=== PATIENT | female | born 1985 | race Caucasian/White ===

== ENCOUNTER → 2023-07-13 15:03 | Outpatient (CLI) | payer OTHER, SELFPAY ==
[2023-07-13 17:50] LABS: Add Manual Diff / Slide Review NO; Basophils Absolute Auto 0 /uL (0-100); Basophils Percent Auto 0.3 % (0-2); Eosinophils Absolute Auto 100 /uL (0-450); Eosinophils Percent Auto 0.6 % (2-4); Hematocrit 35.9 % (36-46); Hemoglobin 12.4 g/dL (12.0-16.0); Lymphocytes Absolute Auto 2300 /uL (1100-4500); Lymphocytes Percent Auto 24.2 % (25-40); Mean Corpuscular HGB Conc 34.6 % (30-36); Mean Corpuscular Hemoglobin 32.3 PG (26-34); Mean Corpuscular Volume 93.4 fL (80-100); Monocytes Absolute Auto 800 /uL (0-900); Monocytes Percent Auto 8.4 % (3-14); Neutrophils Absolute Auto 6300 /uL (1500-7000); Neutrophils Percent Auto 66.5 % (50-75); Platelet Count 282 X10^3/uL (150-400); Red Blood Cell Count 3.84 X10^6/uL (4.0-5.2); Red Cell Distribution Width 12.1 % (11.6-14.8); White Blood Cell Count 9.5 X10^3/uL (4.5-11.0)
[2023-07-13 18:27] LABS: HEMOLYSIS < 15 (0-50); Iron 95 ug/dL (37-170)
[2023-07-13 18:32] LABS: Hemoglobin A1C% w Est Avg Glu 5.1 % (4.0-6.0)
[2023-07-13 18:43] LABS: Percent Iron Saturation 25 % (15-50); Total Iron Binding Capacity 377 ug/dL (265-497); Transferrin 301 mg/dL (206-381)
[2023-07-13 18:48] LABS: Appearance Urine UA CLEAR; Bilirubin Urine UA NEGATIVE (NEGATIVE); Color Urine UA YELLOW; Glucose Urine UA NEGATIVE (Negative); Ketones Urine UA NEGATIVE (NEGATIVE); Leukocyte Esterase Urine UA NEGATIVE (NEGATIVE); Nitrite Urine UA NEGATIVE (Negative); Occult Blood Urine UA NEGATIVE (Negative); Protein Urine UA NEGATIVE (Negative); Specific Gravity Urine UA <=1.005 (1.000-1.035); Urobilinogen Urine UA 0.2 E.U./dL (0.2)
[2023-07-13 19:29] LABS: HIV 1 & 2 Ab/Ag 4th Gen Combo NEGATIVE (NEGATIVE); Hep C Virus Ab w/Reflex Quant NEGATIVE s/c (NEGATIVE); Hepatitis B Surface Antigen NEGATIVE s/c (NEGATIVE); Rubella Antibody IgG 30.3 IU/mL (>15)
[2023-07-15 10:51] LABS: Varicella IgG Antibody 3193 index (Immune >165)
[2023-07-16 03:23] LABS: RPR Screen Non Reactive (Non Reactive)
== END ==
PROVIDERS: PCP Student in an Organized Health Care Education/Training Program; Referring Provider Student in an Organized Health Care Education/Training Program; Visit Provider Student in an Organized Health Care Education/Training Program
DX: Z34.80 Encounter for supervision of other normal pregnancy, unspecified trimester (principal); O09.299 Supervision of pregnancy with other poor reproductive or obstetric history, unspecified trimester; Z86.32 Personal history of gestational diabetes; R79.0 Abnormal level of blood mineral
CPT/HCPCS: 36415; 80055; 81003; 83036; 83540; 83550; 86787; 86803; 86850; 86900; 86901; 87077; 87086; 87147; 87389

== ENCOUNTER → 2023-07-21 14:24 | Outpatient (CLI) | payer OTHER, SELFPAY ==
--- NOTE | 2023-07-21 14:24 | DI.US.S_ITS ---
PROCEDURE: US OB <= 14 WEEKS FETUS INDICATIONS: DATING AND VIABILITY OUTSIDE/PRIOR DATING DATA: Last menstrual period (LMP): 05/16/2023 LMP-based estimated date of delivery (SALIMA): 02/20/2024 First dating scan (date and location): 07/21/2023 Estimated date of delivery (SALIMA) from first dating scan: 02/20/2024 TECHNIQUE: Real-time scanning was performed of the fetus and maternal pelvic organs, with image documentation. COMPARISON: None. FINDINGS: Embryo: Intrauterine gestational sac is seen with yolk sac and pole. [place]-rump length is 2.6 cm, compatible with an estimated gestational age of nine weeks 3 days. Heart rate: 168 beats per minute Maternal organs: Left ovarian corpus luteum cyst is present. Ovaries are otherwise unremarkable. IMPRESSION: Single live intrauterine . size is concordant with clinical dates. We strive to produce accurate, complete, and clear reports of imaging services. To assist us in improving patient care, this report was composed using standard report templates and voice recognition software. Therefore, it may contain abnormal punctuation, insertions and/or omissions. Occasional wrong-word or sound-alike substitutions may occur. Though we review the report and make efforts to correct it, we do recommend that the report be read carefully in proper context to recognize any text inaccuracies. Approved by: Seth Jenkins M.D. on 07/21/2023 at 20:41
== END ==
PROVIDERS: PCP Student in an Organized Health Care Education/Training Program; Referring Provider Student in an Organized Health Care Education/Training Program; Visit Provider Student in an Organized Health Care Education/Training Program
DX: Z34.81 Encounter for supervision of other normal pregnancy, first trimester (principal); Z3A.01 Less than 8 weeks gestation of pregnancy
CPT/HCPCS: 76801

== ENCOUNTER → 2023-07-30 13:58 | Outpatient (CLI) | payer OTHER, SELFPAY ==
[2023-07-30 14:13] LABS: Miscellaneous to LabCorp NATERA KIT
--- NOTE | 2023-08-14 18:27 | P.CALLCOV_ITS ---
Call Coverage Note Note Date of Patient Contact: 08/14/23 Time of Patient Contact: 18:28 Narrative of Care Provided: Amanda has had a fever since Thursday - ranging from 99-101 F. Has a cough, nasal congestion, sinus pain in her face. Has a history of sinus infections and this reminds her of them. Is using neti pot/saline spray, humidifier. Has taken 250- 500 mg acetaminophen which has helped her fever a little bit but not much. New to the area; thinks she got exposed at a hockey tournament last weekend. Requesting advice. Reports allergies to doxycycline (rash). at 13 weeks Sinus infection Recommend covid testing; Amanda did this and tested negative today (08/14/23). Recommend acetaminophen 1000 mg TID x 48 hours to manage fever. Rx for Augmentin 500/125 TID x 7 days called into her pharmacy. Recommend probiotics. Call back with questions or concerns.
== END ==
PROVIDERS: PCP Student in an Organized Health Care Education/Training Program; Referring Provider Student in an Organized Health Care Education/Training Program; Visit Provider Student in an Organized Health Care Education/Training Program
DX: O09.521 Supervision of elderly multigravida, first trimester (principal); Z34.80 Encounter for supervision of other normal pregnancy, unspecified trimester
CPT/HCPCS: 36415

== ENCOUNTER → 2023-10-05 12:16 | Outpatient (CLI) | payer OTHER, SELFPAY ==
--- NOTE | 2023-10-05 12:16 | DI.US.S_ITS ---
PROCEDURE: US OB >= 14 WEEKS FETUS INDICATIONS: Anatomy Scan OUTSIDE/PRIOR DATING DATA: Last menstrual period (LMP): 05/16/2023 LMP-based estimated date of delivery (SALIMA): 02/20/2024 First dating scan (date and location): 07/21/2023 Estimated date of delivery (SALIMA) from first dating scan: 02/20/2024 The calculations are made using the working SALIMA of 02/20/2024. TECHNIQUE: Real-time scanning was performed of the fetus, with image documentation and biometric measurements. Endovaginal scanning: Not indicated COMPARISON: None. FINDINGS: General: A single living intrauterine gestation is present. Presentation: Breech Placenta: Placental position is anterior, without previa. Amniotic fluid index: 15.6 cm, normal range is 5-24 cm. Single deepest vertical pocket is 4.5 cm. heart rate: 155 beats per minute. Maternal cervical canal: 4.6 cm long. Normal lower limit is 2.5 cm. biometrics: Biparietal diameter: 4.9 cm, 20 weeks, 5 days. Head circumference: 17.9 cm, 20 weeks, 2 days. Abdominal circumference: 15.9 cm, 21 weeks, 0 day. Femur length: 3.3 cm, 20 weeks, 3 days. Clinically estimated gestational age: 20 weeks, 2 days Composite gestational age from present scan: 20 weeks, 4 days Estimated weight and percentile: 371 g, 69%. Anatomic survey: Neuro: Ventricles are non-dilated at less than 10 mm. Cisterna magna is normal at 3-11 mm. Cerebellum is normal in size and morphology. Nuchal skin fold: Normal at less than 6 mm between 14-21 weeks gestational age. Face: Nose and lips, facial profile are normal. Spine: No evidence for spina bifida. Heart: 4-chambered heart is present, with normal ventricular outflow tracts. Diaphragm: Diaphragm is intact. Stomach: Left-sided stomach is present. Kidneys: No hydronephrosis. Normal is less than 5 mm in 2nd trimester, less than 7 mm in 3rd trimester. Cord: 3-vessel cord has orthotopic insertion. Bladder: Normal in size. Extremities: All 4 extremities identified. IMPRESSION: 1. Single live intrauterine gestation with fetus in breech presentation. Normal amount of amniotic fluid with ISA measures 15.6 cm. Normal growth. Estimated weight is at 69%. 2. Normal anatomic survey. We strive to produce accurate, complete, and clear reports of imaging services. To assist us in improving patient care, this report was composed using standard report templates and voice recognition software. Therefore, it may contain abnormal punctuation, insertions and/or omissions. Occasional wrong-word or sound-alike substitutions may occur. Though we review the report and make efforts to correct it, we do recommend that the report be read carefully in proper context to recognize any text inaccuracies. Dictated by: Kofi Patel M.D. on 10/05/2023 at 15:49 Approved by: Kofi Patel M.D. on 10/05/2023 at 15:52
== END ==
PROVIDERS: PCP Student in an Organized Health Care Education/Training Program; Referring Provider Student in an Organized Health Care Education/Training Program; Visit Provider Student in an Organized Health Care Education/Training Program
DX: Z34.82 Encounter for supervision of other normal pregnancy, second trimester (principal); Z3A.20 20 weeks gestation of pregnancy
CPT/HCPCS: 76811

== ENCOUNTER → 2023-11-09 15:17 | Outpatient (CLI) | payer OTHER, SELFPAY ==
[2023-11-09 17:03] LABS: Hematocrit 33.8 % (36-46); Hemoglobin 11.6 g/dL (12.0-16.0)
[2023-11-09 17:30] LABS: GTT (PREG) 1 Hour PP 50gm Dose 170 mg/dL (76-139)
== END ==
PROVIDERS: PCP Student in an Organized Health Care Education/Training Program; Referring Provider Student in an Organized Health Care Education/Training Program; Visit Provider Student in an Organized Health Care Education/Training Program
DX: Z34.82 Encounter for supervision of other normal pregnancy, second trimester (principal); Z3A.26 26 weeks gestation of pregnancy
CPT/HCPCS: 82950; 85014; 85018